=== PATIENT | female | born 1990 | race Caucasian/White ===

== ENCOUNTER 2018-08-12 22:04 | Emergency (ER) | payer OTHER ==
[~2018-08-12] VITALS: Ht 172.7 cm; Wt 82.6 kg
[2018-08-12 22:19] VITALS: Ht 172.7 cm; Wt 82.6 kg
[2018-08-12 23:19] LABS: UA SPECIFIC GRAVITY 1.015 (1.005-1.035); microscopic required? YES; urine erythrocyte 2+ (NEGATIVE)
[2018-08-12 23:21] LABS: BASOPHIL % 0.1 % (0-2); PLATELET COUNT 165 x10^3mcL (130-400); RED CELL DISTRIBUTION WIDTH 13.9 % (11.5-14.5)
[2018-08-12 23:30] LABS: CALCIUM 8.7 mg/dL (8.5-10.1); CARBON DIOXIDE 25.1 mmol/L (21-32); CHLORIDE SERUM 99 mmol/L (98-107); CREATININE SERUM 0.9 mg/dL (0.6-1.0); GFR1 > 60 mL/min; GLUCOSE SERUM 98 mg/dL (74-106); POTASSIUM SERUM 3.3 mmol/L (3.5-5.1); SODIUM SERUM 134 mmol/L (136-145)
[2018-08-12 23:35] LABS: ALBUMIN 3.9 g/dL (3.4-5.0); ALKALINE PHOSPHATASE 95 U/L (46-116); ALT/SGPT 29 U/L (14-59); AST/SGOT 24 U/L (15-37); BILIRUBIN TOTAL 0.5 mg/dL (0.20-1.00); TOTAL PROTEIN, SERUM 7.5 g/dL (6.4-8.2)
[2018-08-13 00:07] VITALS: BP 121/78
== END 2018-08-13 00:17 | disposition home or self-care (01) ==
LOC: ED 22:04
PROVIDERS: Emergency Medicine
DX: S40.861A Insect bite (nonvenomous) of right upper arm, initial encounter (principal); L03.113 Cellulitis of right upper limb; N39.0 Urinary tract infection, site not specified; W57.XXXA Bitten or stung by nonvenomous insect and other nonvenomous arthropods, initial encounter; Y93.89 Activity, other specified; Y92.89 Other specified places as the place of occurrence of the external cause; Y99.8 Other external cause status
CPT/HCPCS: J0696; J7030

== ENCOUNTER 2020-02-23 10:06 | Emergency (ER) | payer OTHER ==
[~2020-02-23] VITALS: Ht 175.3 cm; Wt 77.6 kg
[2020-02-23 10:10] VITALS: Ht 175.3 cm; Wt 77.6 kg
[2020-02-23 12:12] VITALS: BP 123/84
[2020-02-23 12:21] LABS: UA SPECIFIC GRAVITY 1.015 (1.005-1.035); microscopic required? YES; urine erythrocyte 1+ (NEGATIVE)
== END 2020-02-23 12:12 | disposition home or self-care (01) ==
LOC: ED 10:06
PROVIDERS: Specialist
DX: S29.012A Strain of muscle and tendon of back wall of thorax, initial encounter (principal); S39.012A Strain of muscle, fascia and tendon of lower back, initial encounter; N39.0 Urinary tract infection, site not specified; X58.XXXA Exposure to other specified factors, initial encounter; Y93.89 Activity, other specified; Y92.89 Other specified places as the place of occurrence of the external cause; Y99.8 Other external cause status
CPT/HCPCS: J1885

== ENCOUNTER 2020-09-03 21:54 | Emergency (ER) | payer OTHER ==
[~2020-09-03] VITALS: Ht 175.3 cm; Wt 74.8 kg
[2020-09-03 22:28] VITALS: Ht 175.3 cm; Wt 74.8 kg
[2020-09-03 23:27] VITALS: BP 119/85
== END 2020-09-03 23:27 | disposition home or self-care (01) ==
LOC: ED 21:54
DX: L20.9 Atopic dermatitis, unspecified (principal)